=== PATIENT | male | born 1960 | race Two or more races ===

== ENCOUNTER 2021-05-19 10:40 | Observation (INO) ==
[2021-05-19 11:01] VITALS: BMI 23.1
--- NOTE | 2021-05-19 11:15 | DR.GENAD ---
HPI Time Seen Time Seen by Provider: 05/19/21 11:13 PCP Primary Care Physician: COLLIN HPI Comment HPI Comment: PATIENT IS 61YR OLD MALE IN ER WITH INCREASING SOB AND JUST COMPLITED 4TH DOSE OF REMDISIVIR TODAY. PATIENT TESTED POSITIVE FOR COVID 19 VIRUS ON 05/13/20. HE GOT SICK 05/11/21. HE WAS INFUSED WITH REMDISIVIR AND COMPLETED INFUSION TODAY. HE IS WEAKER, INCREASING SOB ESPECIALY AT NIGHT AND ON EXERTION.PO2 WAS 84 ON 05/14/2021. TODAY IT IS 53. DENIES FEVER. Complaint/Symptoms Chief Complaint Doctors Comments: INCREASING SOB, POSITIVE FOR COVID 19 VIRUS. Chief Complaint:: SOB at night, feeling anxious COVID-19 Coronavirus risk:travel/contact w/high risk person: Yes Has patient experienced Coronavirus symptoms: Yes Coronavirus symptoms experienced: Shortness of Breath Nurses notes reviewed Nurses Notes Review: Yes Source History Provided: Patient Mode of Arrival Mode of Arrival: Ambulatory Timing Onset of Chief Complaint: 05/16/21 Came on: Suddenly Duration Duration: Constant Duration: Days Severity Severity: Moderate Modifying Factors Worsens:: EXERTION Improves:: REST Associated Signs and Symptoms Associated Signs and Symptoms: WEAKNESS PMH PMH Past Medical History: No Past Surgical History: No Surgical History: No History Family History History of Family Medical Conditions: No Social History Alcohol Use: None Do you use any recreational Drugs:: No Lives With: Alone Lives Where: Home Travel Risk Coronavirus risk:travel/contact w/high risk person: Yes Has patient experienced Coronavirus symptoms: Yes Coronavirus symptoms experienced: Shortness of Breath Infectious screening Have you traveled outside the country in the last 6 months?: No Isolation: Droplet ROS Review of Systems Constitutional: See HPI, Weakness and Fatigue; negative Fever Eyes: No Symptoms Reported and See HPI ENTM: See HPI, Nose Discharge and Nose Congestion Respiratoy: See HPI, Productive Cough, Short of Breath and Wheezing Cardiovascular: No Symptoms Reported, See HPI and Chest Pain (TIGHTNESS.) Gastrointestinal/Abdominal: No Symptoms Reported and See HPI; negative Abdominal Pain, Diarrhea and Vomiting Genitourinary: No Symptoms Reported and See HPI; negative Dysuria, Frequency and Hematuria Neurological: See HPI and Weakness; negative Headache and Dizziness Musculoskeletal: See HPI and Muscle Pain; negative Back Pain Integumentary: No Symptoms Reported and See HPI; negative Change in Color, Rash and Juandice Hematologic/Lymphatic: No Symptoms Reported, See HPI and Easy Bruising Endocrine: No Symptoms Reported and See HPI; negative Increased Thirst and Increased Urine Psychiatric: No Symptoms Reported and See HPI All Other Systems: Reviewed and Negative PE Vital Signs Vitals: Temperature 98.0 F Pulse Rate 74 Respiratory Rate 17 Blood Pressure [Left Arm] 116/75 Blood Pressure 142/88 O2 Sat by Pulse Oximetry 94 General Limitations: No Limitations General Appearance: Alert and In No Apparent Distress Head Head Exam: Normal Inspection and Atraumatic Eyes Eye exam: Normal Appearance and PERRL; negative Scleral Icterus and Conjunctival Injection ENT ENT Exam: Normal Exam, Normal Oropharynx, Normal External Ear Exam and TM's Normal Bilaterally External Ear Exam: Normal External Inspection; negative Mastoid Tenderness TM/Canal Exam: Bilateral: Normal Nose Exam: Normal Nose Exam Mouth Exam: Normal Inspection; negative Lip Swelling and Tongue Swelling Throat Exam: Normal Inspection; negative Tonsillar Erythema, Tonsillomegaly and Tonsillar Exudate Neck Neck Exam: Normal Inspection and Trachea Midline; negative Tenderness and Lymphadenopathy Chest Chest Inspection: Normal Inspection and Symmetric Chest Wall Rise; negative Tenderness Respiratory Respiratory Exam: Normal Lung Sounds Bilat; negative Accessory Muscle Use, Chest Wall Tenderness and Respiratory Distress Respiratory Exam: Bilateral: Rhonchi and Lower: Rhonchi Cardiovascular Cardiovascular Exam: Regular Rate, Normal Rhythm and Normal Heart Sounds; negative Systolic Murmur and Diastolic Murmur Abdominal Exam Abdominal Exam: Normal Inspection, Normal Bowel Sounds and Soft; negative Tenderness Extremities Extremities Exam: Normal Inspection and Normal Capillary Refill Back Back Exam: Normal Inspection; negative (R) CVA Tenderness and (L) CVA Tenderness Neurologic Neurological Exam: Alert, Oriented X3 and CN II-XII Intact; negative Motor Sensory Deficit Psychiatric Psychiatric Exam: Normal Affect and Normal Mood Skin Skin Exam: Warm, Dry, Intact and Normal Color MDM Differential Diagnosis Differential Diagnosis: SOB/HYPOXIA, PNEUMONIA, BRONCHITIS, PE. GENERALIZED WEAKNESS. COURSE Treatment Treatment: SEE ORDERS. PATIENT WITH COVID 19 VIRUS INFECTION THAT IS HAVING INCREASING SOB. HE IS BEING ADMITTED TO HOSPITAL FOR HYPPOXIA AND WORSENING PNEUMONIA. DISCUSSED PATIENTS CONDITION AND CTA REPORT WITH HIM VIA HEAD MECHANIC HE HAD ON HIS PHONE. HE UNDERSTAND. Consultation Consultation Comments: DISCUSSED PATIENT WITH DR. WHITE. HE WILL ADMIT PATIENT. [facility] Labs Reviewed Laboratory Results Reviewed?: Yes Laboratory: Sample Site Rr 05/19/21 11:31 ABG pH 7.490 (7.35-7.45) H 05/19/21 11:31 ABG pCO2 30.0 mmHg (35.0-45.0) L 05/19/21 11:31 ABG pO2 58.0 mmHg (80.0-100.0) L 05/19/21 11:31 ABG HCO3 22.9 mmol/L (22-26) 05/19/21 11:31 ABG O2 Saturation 92.0 % (90-100) 05/19/21 11:31 ABG Base Excess 0.3 mmol/L (-2.0-2.0) 05/19/21 11:31 Mamadou Test Pos 05/19/21 11:31 A-a Gradient 54.0 mmHg 05/19/21 11:31 FiO2 21.0 05/19/21 11:31 Blood Gas Comments Pt mac well elj cdn 05/19/21 11:31 XRAY XRAY Interpreted by: Radiologist (REPORT NOTED AND DISCUSSED WITH PATIENT.) and Self Opioid Opioid Risk Tool Age (Fabian box if 16-45): No History of Preadolescent Sexual Abuse: No Total: 0 Total Score Risk Category: Low Risk Copyright: [facility] predicting aberrant behaviors Diagnosis Discharge Problem: Hypoxia, COVID-19 virus infection Pneumonia Qualifiers: Pneumonia type: due to unspecified organism Laterality: bilateral Lung location: lower lobe of lung Qualified Code(s): J18.9 - Pneumonia, unspecified organism Instructions Forms: Precautions for COVID19 [facility] Social Distancing
[2021-05-19 11:37] LABS: ABG BASE EXCESS 0.3 mmol/L (-2.0-2.0); ABG HCO3 22.9 mmol/L (22-26)
[2021-05-19 11:38] LABS: ABG ALLEN TEST POS
--- NOTE | 2021-05-19 12:41 | CT ---
PROCEDURE: CTA Chest .HISTORY: Dyspnea and hypoxia.TECHNIQUE: Axial images were performed through the chest with the administration of IV contrast with multiplanar reformations . 3D and MIPS reconstructions were performed and reviewed. Dose reduction techniques including Automated Exposure Control (AEC) and adjustment of mA and kV were utilized .COMPARISON: None .TECHNICAL QUALITY: Satisfactory .FINDINGS:Normal aorta with no atherosclerosis or aneurysm. Aortic lumen is unopacified with contrast.No evidence of pulmonary embolus.Mediastinum and hilar regions show no masses or lymphadenopathy.Normal size heart with no pericardial fluid.Moderate patchy ground-glass consolidation both lung carter consistent with COVID pneumonia. No pleural fluid or pneumothorax.Visualized upper abdomen shows no significant abnormality.No acute bony abnormality.IMPRESSION:1. No pulmonary embolus.2. Moderate bilateral COVID-19 pneumonia.Electronically signed by: Mumtaz Cedillo (May 19, 2021 12:38:32)
[2021-05-19] MEDS ORDERED: ZOSYN VIAL 3.375 GRAMS IV ONE (13:05)
[2021-05-19] MEDS ORDERED: NS 100 ML IV + SPIKE MINIBAG* 100 ML IV ONE (13:06)
[2021-05-19] MEDS ORDERED: NS 1000 ML 1,000 ML ONE (13:06)
[2021-05-19] MEDS: ZOSYN VIAL 3.375 GRAMS 3.375 G in NS 100 ML IV + SPIKE MINIBAG* 100 ML IV ONE ×2 (13:14→13:15)
[2021-05-19] MEDS ORDERED: NS 1000 ML 1,000 ML IV SCH (14:00)
[2021-05-19] MEDS: ZOSYN VIAL 3.375 GRAMS 3.375 G in NS 100 ML IV + SPIKE MINIBAG* 100 ML IV SCH ×2 (14:24→21:07)
[2021-05-19] MEDS: NS 1000 ML 1,000 ML IV SCH (14:24)
[2021-05-19] MEDS: ASCORBIC ACID INJ MULTI-DOSE VIAL 1,500 MG in NS 100 ML IV 100 ML IV SCH ×2 (15:34→20:32)
[2021-05-19] MEDS: SOLU-Medrol 40 MG VIAL IVP SCH ×2 (15:34→21:06)
[2021-05-19] MEDS ORDERED: PULMICORT NEB TX 0.5 MG NEB ONE (19:07)
[2021-05-19] MEDS ORDERED: BROVANA ONE (19:07)
[2021-05-19] MEDS ORDERED: ACCUNEB 1.25 MG NEBULE ONE (19:07)
[2021-05-19] MEDS: ACCUNEB 1.25 MG NEBULE NEB SCH (20:20)
[2021-05-19] MEDS: PULMICORT NEB TX 0.5 MG NEB SCH (20:20)
[2021-05-19] MEDS: BROVANA IN SCH (20:20)
[2021-05-19] MEDS: LOVENOX INJ 30 MG SYR SC SCH (20:32)
[2021-05-19] MEDS: ZINC SULFATE PO SCH (20:33)
[2021-05-19] MEDS: PEPCID TAB 40 MG PO SCH (20:33)
[2021-05-20] MEDS: ASCORBIC ACID INJ MULTI-DOSE VIAL 1,500 MG in NS 100 ML IV 100 ML IV SCH ×4 (02:30→20:17)
[2021-05-20] MEDS: TYLENOL 325 MG TAB PO PRN ×2 (04:42→19:32)
[2021-05-20] MEDS: ACCUNEB 1.25 MG NEBULE NEB SCH ×3 (05:04→20:20)
[2021-05-20 05:16] LABS: BASOPHILS # (AUTO) 0.2 X10^3/uL (0.0-0.1); BASOPHILS % (AUTO) 2.1 % (0.2-1.0); HEMATOCRIT 43.5 % (42.0-54.0); HEMOGLOBIN 15.1 g/dL (13.5-18.0); LYMPHOCYTES # (AUTO) 0.6 X10^3/uL (1.3-2.9); LYMPHOCYTES % (AUTO) 8.6 % (21.0-51.0); MEAN CORPUSCULAR HEMOGLOBIN 30.1 pg (27.0-34.0); MEAN CORPUSCULAR HGB CONC 34.6 g/dL (33.0-35.0); MEAN CORPUSCULAR VOLUME 87.1 fL (80.0-100.0); MEAN PLATELET VOLUME 7.9 fL (7.4-11.0); MONOCYTES # (AUTO) 0.2 x10^3/uL (0.3-0.8); MONOCYTES % (AUTO) 3.4 % (0.0-13.0); NEUTROPHILS % (AUTO) 85.9 % (42.0-75.0); PLATELET COUNT 415 X10^3/uL (150.0-450.0); RED CELL DISTRIBUTION WIDTH 13.8 % (11.6-16.5)
[2021-05-20 05:17] LABS: ALANINE AMINOTRANSFERASE 34 Units/L (12-78); ALBUMIN 2.5 g/dL (3.4-5.0); ALKALINE PHOSPHATASE 71 Units/L (46-116); ASPARTATE AMINO TRANSFERASE 21 Units/L (15-37); BLOOD UREA NITROGEN 21 mg/dL (7-18); CALCIUM 8.2 mg/dL (8.5-10.1); CARBON DIOXIDE 26.8 mmol/L (21-32); CHLORIDE 103 mmol/L (98-107); COR CA(FOR HYPOALB) 9.4 mg/dL (8.5-10.1); COR NA(FOR HYPERGLY) 137 mmol/L (136-145); CREATININE 0.94 mg/dL (0.70-1.30); SODIUM 136 mmol/L (136-145); TOTAL PROTEIN 6.3 g/dL (6.4-8.2); eGFR NON BLACK RACES > 60 (>60)
[2021-05-20] MEDS: SOLU-Medrol 40 MG VIAL IVP SCH ×3 (05:26→21:07)
[2021-05-20] MEDS: ZOSYN VIAL 3.375 GRAMS 3.375 G in NS 100 ML IV + SPIKE MINIBAG* 100 ML IV SCH ×3 (05:27→21:07)
--- NOTE | 2021-05-20 07:20 | RAD ---
HISTORYSOB, COVID+STUDYCHEST, 1 [id number]/24/2021.TECHNIQUEAP view of the chestFINDINGSCardiac and mediastinal contours are within normal limits. No significant change in bilateral airspace and interstitial opacities. No definite pleural effusion or pneumothorax.IMPRESSIONNo significant change.Electronically signed by: Anupam Street (May 20, 2021 07:18:23)
[2021-05-20] MEDS ORDERED: REMDESIVIR 100 MG in NS 100 ML IV + SPIKE MINIBAG* 120 ML IV ONE (08:15)
[2021-05-20] MEDS: LOVENOX INJ 30 MG SYR SC SCH ×2 (08:21→20:18)
[2021-05-20] MEDS: PEPCID TAB 40 MG PO SCH ×2 (08:22→20:18)
[2021-05-20] MEDS: TRICOR TAB 160 MG PO SCH (08:22)
[2021-05-20] MEDS: ZINC SULFATE PO SCH ×2 (08:23→20:18)
[2021-05-20] MEDS ORDERED: VITAMIN A PO SCH (09:00)
[2021-05-20] MEDS ORDERED: VITAMIN D (1.25MG) PO SCH (09:00)
[2021-05-20] MEDS: PULMICORT NEB TX 0.5 MG NEB SCH ×2 (09:20→20:20)
[2021-05-20] MEDS: BROVANA IN SCH ×2 (09:20→20:20)
--- NOTE | 2021-05-20 10:27 | DR.H&P ---
H&P - History & Physical for Day of: H&P Date: 05/19/21 - Chief Complaint Chief Complaint: COUGH, SOB, WEAKNESS, COVID - History of Present Illness History of Present Illness: IS A 61 YEAR OLD MALE. HE PRESENTED TO THE ER WITH COMPLAINTS OF INCREASING SHORNTESS OF BREATH, COUGH, AND GENERALIZED WEAKNESS. HE REPORTS TESTING POSITIVE FOR COVID-19 ON 05/13/21. HE HAS BEEN RECEIVING OUTPATIENT REMDESIVIR INFUSIONS. HIS OXYGEN SATURATIONS HAVE DROPPED INTO THE UPPER 80s ON MULTIPLE OCCASIONS. HE HAS BEEN TAKING A MEDROL DOSEPACK AND IBUPROFEN 800MG PO Q6H. HE DENIES IMPROVEMENT IN SYMPTOMS DESPITE COMPLIANCE WITH MEDICATIONS. ON ARRIVAL TO THE ER, VITALS WERE 98.0-76-17-97%-134/78. LABS WERE OBTAINED. ABNORMAL LAB VALUES INCLUDE THE FOLLOWING: WBC 10.9, D-DIMER 1.29, BUN 21, GLUCOSE 118, CALCIUM 7.9, CRP 12.30, ALBUMIN 2.8. ABG REVEALED: PJ 7.490, PC02 30, P02 58, HC03 22.9, 02 SAT 92, A-A GRADIENT 54, FI02 21.0. A CHEST XRAY WAS OBTAINED AND REVEALED: No change in the multifocal infiltrates in the left mid and lower lung field but mild worsening of the infiltrates in the right lung base compared to the last film May 16, 2021. Findings are consistent with mild worsening of COVID pneumonia. A CHEST CTA WAS OBTAINED AND REVEALED: 1. No pulmonary embolus. 2. Moderate bilateral COVID-19 pneumonia. IN THE ER, HE WAS GIVEN ZOSYN 3.375G IV X 1 DOSE, ALBUTEROL NEB TX X 1 DOSE, BROVANA 15MCG 1 INHALATION X 1 DOSE, PULMICORT NEB TX X 1 DOSE. HE WAS ADMITTED TO THE HOSPTIAL FOR FURTHER EVALUATION AND TREATMENT OF PNEUMONIA DUE TO COVID-19. HE WAS STARTED ON NS AT KVO, ZOSYN 3.375G IV TID, ALBUTEROL NEBS TID, PULMICORT NEBS BID, BROVANA 15MCG INHALER BID, ASCORBIC ACID 1500MG IV Q6H, LOVENOX 30MG SC BID, VITAMIN D 50,000 UNITS PO DAILY, PEPCID 40MG PO BID, TRICOR 160MG PO DAILY, SOLU-MEDROL 80MG IV Q8H, AND ZINC SULFATE 220MG PO BID. OTHERWISE, WE WILL FOLLOW UP WITH AM LABS AND CHEST XRAY AND CONTINUE TO MONITOR. TIME SPENT ON CLINICAL ASSESSMENT, REVIEWING LABS AND IMAGING, DECISION MAKING, AND DOCUMENTATION GREATER THAN 75 MINUTES. - Past Surgical History Surgical History: No History - Social History Does patient currently use any type of tobacco product: No Have you used tobacco products in the last 12 months: No Type of Tobacco Use: None Does any household member use tobacco: No Alcohol Use: None Drug Use: None - Medications Home Medications: No Known Drug Allergies Allergy (Verified 05/19/21 10:54) CONTINUE taking the following medications NK 05/19/21 [History] - Review of Systems Constitutional: Weakness. denies: Fever Eyes: No Symptoms Reported ENT: No Symptoms Reported Respiratory: See HPI, Cough, Shortness of Breath, SOB with Excertion Cardiovascular: No Symptoms Reported Gastrointestinal: No Symptoms Reported Genitourinary: No Symptoms Reported Musculoskeletal: No Symptoms Reported Skin: No Symptoms Reported Neurological: Weakness - Physical Exam Vital Signs: Temperature 97.8 F Pulse Rate 83 Respiratory Rate 24 Blood Pressure [Left Arm] 116/75 Blood Pressure 140/80 O2 Sat by Pulse Oximetry 95 Oriented: Normal Eyes: Normal Ear: Normal Nose: Normal Throat: Normal Respiratory: Rhonchi Throughout Cardiovascular: Normal : Normal Auscultation: Bowel Sounds: Normal Palpation: Normal Tenderness: Normal Skin: Normal Musculoskeletal: Normal Psychiatric: Normal Mood Description: Calm Affect: Normal Speech Pattern: Clear - Assessment/Plan (1) Pneumonia due to 2019-nCoV Status: Acute Plan: ADMIT, SUPPLEMENTAL OXYGEN, NS AT KVO, ZOSYN 3.375G IV TID, ALBUTEROL NEBS TID, PULMICORT NEBS BID, BROVANA 15MCG INHALER BID, ASCORBIC ACID 1500MG IV Q6H, LOVENOX 30MG SC BID, VITAMIN D 50,000 UNITS PO DAILY, PEPCID 40MG PO BID, TRICOR 160MG PO DAILY, SOLU-MEDROL 80MG IV Q8H, AND ZINC SULFATE 220MG PO BID. (2) Hypoxia Status: Acute (3) Dyspnea Qualifiers: Dyspnea type: unspecified Qualified Code(s): R06.00 - Dyspnea, unspecified Status: Acute - Allergies Allergies/Adverse Reactions: Allergies Allergy/AdvReac Type Severity Reaction Status Date / Time No Known Drug Allergies Allergy Verified 05/19/21 10:54
[2021-05-20] MEDS: NS 1000 ML 1,000 ML IV SCH (14:55)
[2021-05-21] MEDS: ASCORBIC ACID INJ MULTI-DOSE VIAL 1,500 MG in NS 100 ML IV 100 ML IV SCH (02:34)
[2021-05-21 04:35] LABS: ABG ALLEN TEST POS; ABG BASE EXCESS 0.1 mmol/L (-2.0-2.0); ABG HCO3 23.6 mmol/L (22-26)
[2021-05-21] MEDS: ACCUNEB 1.25 MG NEBULE NEB SCH (05:01)
[2021-05-21] MEDS: ZOSYN VIAL 3.375 GRAMS 3.375 G in NS 100 ML IV + SPIKE MINIBAG* 100 ML IV SCH (05:07)
[2021-05-21] MEDS: SOLU-Medrol 40 MG VIAL IVP SCH (05:07)
[2021-05-21] MEDS: TYLENOL 325 MG TAB PO PRN (05:14)
[2021-05-21 05:30] LABS: HEMOGLOBIN 14.4 g/dL (13.5-18.0); RED CELL DISTRIBUTION WIDTH 14.1 % (11.6-16.5)
[2021-05-21 05:39] LABS: BASOPHILS # (AUTO) 0.1 X10^3/uL (0.0-0.1); BASOPHILS % (AUTO) 0.5 % (0.2-1.0); LYMPHOCYTES # (AUTO) 1.1 X10^3/uL (1.3-2.9); LYMPHOCYTES % (AUTO) 9.5 % (21.0-51.0); MEAN CORPUSCULAR HEMOGLOBIN 30.3 pg (27.0-34.0); MEAN CORPUSCULAR HGB CONC 35.2 g/dL (33.0-35.0); MEAN CORPUSCULAR VOLUME 86.3 fL (80.0-100.0); MEAN PLATELET VOLUME 7.8 fL (7.4-11.0); MONOCYTES # (AUTO) 0.8 x10^3/uL (0.3-0.8); MONOCYTES % (AUTO) 6.7 % (0.0-13.0); NEUTROPHILS # (AUTO) 10.1 x10^3/uL (2.2-4.8); NEUTROPHILS % (AUTO) 83.3 % (42.0-75.0); PLATELET COUNT 427 X10^3/uL (150.0-450.0); RED BLOOD COUNT 4.76 X10^6/uL (4.7-6.0); WHITE BLOOD COUNT 12.1 X10^3/uL (3.6-10.0)
[2021-05-21 05:41] LABS: ALANINE AMINOTRANSFERASE 26 Units/L (12-78); ALBUMIN 2.4 g/dL (3.4-5.0); ALKALINE PHOSPHATASE 72 Units/L (46-116); ASPARTATE AMINO TRANSFERASE 13 Units/L (15-37); BLOOD UREA NITROGEN 22 mg/dL (7-18); CALCIUM 8.2 mg/dL (8.5-10.1); CARBON DIOXIDE 22.6 mmol/L (21-32); CHLORIDE 107 mmol/L (98-107); COR CA(FOR HYPOALB) 9.5 mg/dL (8.5-10.1); COR NA(FOR HYPERGLY) 142 mmol/L (136-145); CREATININE 0.99 mg/dL (0.70-1.30); SODIUM 140 mmol/L (136-145); TOTAL PROTEIN 5.9 g/dL (6.4-8.2); eGFR NON BLACK RACES > 60 (>60)
--- NOTE | 2021-05-21 07:06 | RAD ---
HISTORYCOVID+, SOBSTUDYCHEST, 1 VIEWCOMPARISONOne day prior.TECHNIQUEAP view of the chestFINDINGSCardiac and mediastinal contours are within normal limits. No significant change in bilateral airspace and interstitial opacities. No definite pleural effusion or pneumothorax.IMPRESSIONNo significant change.Electronically signed by: Anupam Street (May 21, 2021 07:04:46)
[2021-05-21] MEDS: PEPCID TAB 40 MG PO SCH (08:45)
[2021-05-21] MEDS: TRICOR TAB 160 MG PO SCH (08:45)
[2021-05-21] MEDS: ZINC SULFATE PO SCH (08:45)
[2021-05-21] MEDS: LOVENOX INJ 30 MG SYR SC SCH (08:53)
[2021-05-21] MEDS ORDERED: VITAMIN A PO SCH (09:00)
[2021-05-21] MEDS ORDERED: ASCORBIC ACID INJ MULTI-DOSE VIAL 1,500 MG in NS 50 ML IV 50 ML IV SCH (09:00)
[2021-05-21] MEDS ORDERED: VITAMIN D3 125 mcg (5,000 UNITS) PO SCH (09:00)
[2021-05-21] MEDS: PULMICORT NEB TX 0.5 MG NEB SCH (09:10)
[2021-05-21] MEDS: BROVANA IN SCH (09:10)
[2021-05-21 13:08] VITALS: BP 137/75
== END 2021-05-21 13:05 | disposition home or self-care (01) ==
LOC: ICU 10:51 → ER 10:51 → ICU 14:04
PROVIDERS: ADMIT Internal Medicine; ATTEND Internal Medicine
DX: U07.1 COVID-19; J12.82 Pneumonia due to coronavirus disease 2019; R06.02 Shortness of breath; R53.1 Weakness; R79.82 Elevated C-reactive protein (CRP)